=== PATIENT | female | born 2000 | race Caucasian/White ===

== ENCOUNTER 2021-12-04 08:00 | Outpatient (CLI) | payer MEDICAID ==
[2021-12-04 17:21] LABS: BILIRUBIN,URINE NEGATIVE (NEGATIVE); GLUCOSE, URINE (UA) NEGATIVE (NEGATIVE); KETONES,URINE (UA) 40 mg/dL (NEGATIVE); LEUKOCYTE ESTERASE, URINE NEGATIVE (NEGATIVE); NITRITE,URINE POSITIVE (NEGATIVE); OCCULT BLOOD,URINE NEGATIVE (NEGATIVE); PROTEIN,URINE TRACE mg/dL (NEGATIVE); UROBILINOGEN,URINE 1 (NORMAL) E.U./dL (NORMAL)
[2021-12-04 17:34] LABS: CLARITY,URINE CLOUDY (CLEAR)
[2021-12-04 17:39] LABS: AMORPHOUS SEDIMENT,UR Marked /LPF; BACTERIA,URINE Few /HPF (None Seen); RBC,URINE 0-5 /HPF (0-5); SQUAMOUS EPITHELIAL CELL,UR FEW Squamous (<= Few); WBC,URINE 0-3 /HPF (0-5)
== END 2021-12-04 23:59 | disposition home or self-care (01) ==
LOC: LAB 08:00
PROVIDERS: ATTEND Nurse Practitioner
DX: Z34.90 Encounter for supervision of normal pregnancy, unspecified, unspecified trimester (principal)
CPT/HCPCS: 81001; 87086

== ENCOUNTER 2021-12-17 08:00 | Outpatient (CLI) | payer MEDICAID ==
[2021-12-17 23:46] LABS: CHLAMYDIA TRACHOMATIS DNA NEGATIVE (NEGATIVE); NEISSERIA GONORRHOEAE DNA NEGATIVE (NEGATIVE); TRICHOMONAS VAGINALIS DNA NEGATIVE (NEGATIVE)
== END 2021-12-17 23:59 | disposition home or self-care (01) ==
LOC: LAB.WC 08:00
PROVIDERS: ATTEND Obstetrics & Gynecology
DX: Z11.3 Encounter for screening for infections with a predominantly sexual mode of transmission (principal)
CPT/HCPCS: 87491; 87591; 87661

== ENCOUNTER 2021-12-17 11:18 | Outpatient (CLI) | payer MEDICAID ==
[2021-12-17 11:34] LABS: BASOPHILS % (AUTO) 0.3 %; EOSINOPHILS % (AUTO) 0.5 %; HCT - HEMATOCRIT 40.6 % (37.0-47.0); HGB - HEMOGLOBIN 13.9 g/dL (12.0-16.0); LYMPHOCYTES # (AUTO) 1.6 10^3/uL (1.5-3.5); LYMPHOCYTES % (AUTO) 18.4 %; MEAN CORPUSCULAR HEMOGLOBIN 30.7 pg (27.0-31.0); MEAN CORPUSCULAR HGB CONC 34.2 g/dL (32.0-36.0); MEAN CORPUSCULAR VOLUME 89.6 fL (81.0-99.0); MEAN PLATELET VOLUME 9.5 fL (7.9-10.8); MONOCYTES # (AUTO) 0.7 10^3/uL (0.0-1.0); MONOCYTES % (AUTO) 7.4 %; NEUTROPHILS # (AUTO) 6.4 10^3/uL (1.5-6.6); NEUTROPHILS % (AUTO) 72.9 %; PLT - PLATELET COUNT 270 10^3/uL (130-450); RED BLOOD COUNT 4.53 10^6/uL (4.20-5.40); RED CELL DISTRIBUTION WIDTH 12.2 % (12.0-15.0); WHITE BLOOD COUNT 8.8 x10^3/uL (4.8-10.8)
[2021-12-18 03:08] LABS: HBsAG SCREEN Negative (Negative)
[2021-12-18 04:09] LABS: HCV AB <0.1 s/co ratio (0.0-0.9); RPR Non Reactive (Non Reactive)
[2021-12-18 09:09] LABS: VARICELLA-ZOSTER AB IGG 247 index (Immune >165)
[2021-12-19 01:07] LABS: HIV SCREEN 4TH GENERATION Non Reactive (Non Reactive)
== END 2021-12-17 11:19 | disposition home or self-care (01) ==
LOC: LAB 11:18
PROVIDERS: ATTEND Nurse Practitioner
DX: Z34.90 Encounter for supervision of normal pregnancy, unspecified, unspecified trimester (principal)
CPT/HCPCS: 36415; 85025; 86592; 86762; 86787; 86803; 86850; 86900; 86901; 87340; 87389

== ENCOUNTER 2021-12-18 14:16 | Outpatient (CLI) | payer MEDICAID ==
--- NOTE | 2021-12-18 16:03 | Ultrasound Report ---
PROCEDURE: OB First Trimester INDICATIONS: POSITIVE TEST OUTSIDE/PRIOR DATING DATA: Last menstrual period (LMP): 09/20/2021. LMP-based estimated date of delivery (LEXY): 06/27/2022. First dating scan (date and location): 12/18/2021. Estimated date of delivery (LEXY) from first dating scan: 07/20/2022. The below data below was generated using the working LEXY of 07/20/2022 TECHNIQUE: Real-time scanning was performed of the fetus and maternal pelvic organs, with image documentation. COMPARISON: None FINDINGS: Embryo: Single intrauterine gestational sac is seen with fetus and yolk sac seen. Barada-rump length measures 2.62 cm, estimated gestational age is 9 weeks, 3 days. Heart rate: 169 bpm. Cervix is closed and cervical canal measures 3.7 cm in length. Measurement variability in dating: +/- 4 weeks by LMP, +/- 7 days by mean sac diameter (use before 6 weeks gestation if crown-rump length not able to be measured), +/- 5 days by crown-rump length (6-12 weeks gestation). Maternal organs: 2.9 x 2 x 1.9 cm right ovarian cyst is noted. No solid appearing ovarian lesion. Lef t ovary is within normal limits. IMPRESSION: 1. Single live intrauterine gestation with the fetus and yolk sac seen. heart rate is 169 bpm. Estimated gestational age is 9 weeks, 3 days. 2. No para gestational hemorrhage. Cervix is closed and measures 3.7 cm in length. 3. Right ovarian cyst as above. No solid appearing ovarian lesion. Reviewed by: Branden Owen MD on 12/18/2021 4:02 PM PST Approved by: Branden Owen MD on 12/18/2021 4:02 PM PST Station ID: [id number]
== END 2021-12-18 14:17 | disposition home or self-care (01) ==
LOC: DI 14:16
PROVIDERS: ATTEND Nurse Practitioner
DX: O34.81 Maternal care for other abnormalities of pelvic organs, first trimester (principal); N83.201 Unspecified ovarian cyst, right side; Z3A.09 9 weeks gestation of pregnancy

== ENCOUNTER 2022-02-12 11:30 | Outpatient (CLI) | payer MEDICAID ==
[2022-02-15 14:08] LABS: AFP MOM 0.73 (.); AFP VALUE 28.9 ng/mL (.); DIA MOM 0.78 (.); DIA VALUE 121.16 pg/mL (.); DSR (BY AGE) 1 IN 1151 (.); DSR (SECOND TRIMESTER) 1 IN 10000 (.); GESTAT. AGE METHOD Ultrasound (.); HCG MOM 1.17 (.); HCG VALUE 41825 mIU/mL (.); INSULIN DEP DIABETES No (.); MATERNAL AGE AT EDD 20.8 yr (.); MULTIPLE GESTATION No (.); OPEN SPINA BIFIDA RISK 1 IN 10000 (.); RACE Caucasian (.); RESULTS Report (.); TEST RESULTS *Screen Negative* (.); TRISOMY 18 RISK Not increased (.); UE3 MOM 1.35 (.); UE3 VALUE 1.62 ng/mL (.); WEIGHT 152 lbs (.)
== END 2022-02-12 11:31 | disposition home or self-care (01) ==
LOC: LAB 11:30
PROVIDERS: ATTEND Obstetrics & Gynecology
DX: Z34.92 Encounter for supervision of normal pregnancy, unspecified, second trimester (principal)
CPT/HCPCS: 36415; 81511

== ENCOUNTER 2022-03-12 14:58 | Outpatient (CLI) | payer MEDICAID ==
--- NOTE | 2022-03-13 02:54 | Ultrasound Report ---
PROCEDURE: OB Detailed Eval INDICATIONS: SUPERVISION OF OUTSIDE/PRIOR DATING DATA: Last menstrual period (LMP): 09/20/2021. LMP-based estimated date of delivery (LEXY): 06/27/2022. First dating scan (date and location): 12/18/2021. Estimated date of delivery (LEXY) from first dating scan: 07/20/2022. The below data below was generated using the ultrasound LEXY of 07/20/2022 TECHNIQUE: Real-time scanning was performed of the fetus, with image documentation and biometric measurements. COMPARISON: Ultrasound 12/18/2021. FINDINGS: General: A single living intrauterine gestation is present. Presentation: Transverse, variable. Placenta: Placental position is posterior, without previa. Amniotic fluid index: 11.7 cm, within normal limits for gestational age. Largest pocket: 3.7 cm heart rate: 135 beats per minute. Maternal cervical canal: 4 cm long; normal length is 2.5 cm or more. No endocervical fluid or funnel ing. biometrics: Biparietal diameter: 4.8 cm, 20 weeks 3 days Head circumference: 19.2 cm, 21 weeks 3 days Abdominal circumference: 16.7 cm, 21 weeks 5 days Femur length: 7.6 cm, 21 weeks 2 days Estimated gestational age from initial scan: 21 weeks 3 days Composite gestational age from present scan: 21 weeks 2 days Estimated weight and percentile: 427 g, 47th percentile Measurement variability in biometric dating: +/- 10 days from 12-20 weeks gestation, +/- 2 weeks from 20-30 weeks gestation, +/- 3 weeks at 30 weeks gestation or later. Anatomic survey: Neuro: Ventricles are normal at less than 10 mm. Cisterna magna is normal at 3-11 mm. Cerebellum i s normal in size and morphology. Nuchal skin fold: Normal at less than 6 mm between 14 and 20 weeks gestational age. Face: Nose and lips appear within normal limits. facial profile not well seen. Spine: No evidence for spina bifida. Heart: 4-chambered heart is present. Left ventricular outflow tract appears within normal limits. Ri ght ventricular outflow tract not well seen. Diaphragm: Diaphragm is intact. Stomach: Left-sided stomach is present. Kidneys: No hydronephrosis. Normal is less than 5 mm in 2nd trimester, less than 7 mm in 3rd trimester. Cord: 3 vessel cord has orthotopic insertion. Bladder: Normal in size. Extremities: All 4 extremities are visualized. IMPRESSION: 1. Single living intrauterine demonstrating appropriate interval growth with estimated feta l weight at the 47th percentile. 2. anatomic survey demonstrates no definite acute abnormalities. facial profile and right ventricular outflow tract not well seen. Recommend a repeat study in 2-4 weeks if clinically indicat ed. Reviewed by: Jc Holder MD on 03/13/2022 2:53 AM PST Approved by: Jc Holder MD on 03/13/2022 2:53 AM PST Station ID: [id number]
== END 2022-03-12 14:59 | disposition home or self-care (01) ==
LOC: DI 14:58
PROVIDERS: ATTEND Obstetrics & Gynecology
DX: Z34.92 Encounter for supervision of normal pregnancy, unspecified, second trimester (principal)

== ENCOUNTER 2022-03-26 21:44 | Outpatient (CLI) | payer MEDICAID ==
--- NOTE | 2022-03-27 10:08 | Ultrasound Report ---
PROCEDURE: OB F/U or Repeat INDICATIONS: SUPERVISION OF OUTSIDE/PRIOR DATING DATA: Last menstrual period (LMP): 09/20/2021. LMP-based estimated date of delivery (LEXY): 06/27/2022. First dating scan (date and location): 12/18/2021. Estimated date of delivery (LEXY) from first dating scan: 07/20/2022. The below data below was generated using the study generated LEXY of 07/20/2022 TECHNIQUE: Real-time scanning was performed of the fetus, with image documentation. Endovaginal scanning: Not indicated COMPARISON: None. FINDINGS: General: A single living intrauterine gestation is present. Presentation: Vertex Placenta: Placental position is posterior, without previa. Amniotic fluid index: 12.6 cm, normal for gestational age. heart rate: 148 beats per minute. Maternal cervical canal: Closed and is visually normal in length. Estimated gestational age from initial scan: 23 weeks, 3 days. Other: facial profile and right ventricular outflow tract are visualized and are within normal limits. Nuchal cord is seen. IMPRESSION: 1. Single live intrauterine gestation with fetus in vertex presentation. heart rate is 148 bpm. MICKY equals 12.6 cm and is within normal limits. 2. facial profile and right ventricular outflow tract are visualized on the current study and a re within normal limits. 3. Nuchal cord is noted. Reviewed by: Branden Owen MD on 03/27/2022 10:07 AM PST Approved by: Branden Owen MD on 03/27/2022 10:07 AM PST Station ID: [id number]
== END 2022-03-26 21:45 | disposition home or self-care (01) ==
LOC: DI 21:44
PROVIDERS: ATTEND Obstetrics & Gynecology
DX: Z34.92 Encounter for supervision of normal pregnancy, unspecified, second trimester (principal); Z3A.23 23 weeks gestation of pregnancy